=== PATIENT | female | born 1965 ===

== ENCOUNTER 2016-03-27 05:21 | Inpatient (IN) | payer OTHER ==
[~2016-03-27] VITALS: Ht 160 cm; Wt 72.6 kg
[2016-03-27] VITALS (14 sets, daily range): BP systolic 104–135; BP diastolic 41–92
[~2016-03-27 05:21] MED LIST: NORCO 10-325 T1 EACH ORAL; SOMA350 MG PO; TRAMADOL HCL50 MG ORAL
[2016-03-27] MEDS ORDERED: ceFAZolin sod 2 GM in D5W 110 ML IVPB ONE (06:00)
[2016-03-27] MEDS ORDERED: Thrombin 5000 units TOPIC ONE (06:27)
[2016-03-27] MEDS ORDERED: Surgicel 4in x 8in TOPIC ONE (06:28)
[2016-03-27] MEDS ORDERED: Vancomycin 1gm inj IVPB ONE (06:28)
[2016-03-27] MEDS ORDERED: Bupivacaine w/Epi 0.5% 30ml Vial INJ ONE (06:29)
[2016-03-27] MEDS ORDERED: Bacitracin 50000 Units Vial ONE (06:29)
[2016-03-27] MEDS ORDERED: fentaNYL 250mcg/5ml ONE (07:00)
[2016-03-27] MEDS ORDERED: Zemuron 50mg/5ml Inj IV ONE (07:00)
[2016-03-27] MEDS ORDERED: Sterile Water Irrig 1000ml IRRIG ONE (07:00)
[2016-03-27] MEDS ORDERED: Dexamethasone 4mg/ml vial ONE (07:00)
[2016-03-27] MEDS ORDERED: Lidocaine 1% MPF 10mg/ml 5ml ONE (07:00)
[2016-03-27] MEDS ORDERED: fentaNYL 100 mcg/2 mL IV ONE (07:00)
[2016-03-27] MEDS ORDERED: LR 1000ml ONE (07:00)
[2016-03-27] MEDS ORDERED: Neostigmine 1mg/ml 10ml Inj ONE (07:00)
[2016-03-27] MEDS ORDERED: Glycopyrrolate 0.2mg/ml 1ml Vial ONE (07:00)
[2016-03-27] MEDS ORDERED: NS Irrig 1000ml ONE (07:00)
[2016-03-27] MEDS ORDERED: Propofol 10mg/ml 20ml IV ONE (07:00)
--- NOTE | 2016-03-27 07:08 | Pre-Procedure Note/Attestation ---
Pre-Procedure Note/Attestation Complete Prior to Procedure Planned Procedure: bilateral Procedure Narrative: Bilateral hemilaminotomy foraminotomy microdiscectomy at L5S1 and Right sided hemilaminotomy foraminotomy microdiscectomy at L34 and L45 Indications for Procedure Pre-Operative Diagnosis: Bilateral leg pain and radiculopathy Attestation I attest that I discussed the nature of the procedure; its benefits; risks and complications; and alternatives (and the risks and benefits of such alternatives ), prior to the procedure, with the patient (or the patient's legal pharmaceutical specialty representative). I attest that, if there was a reasonable possibility of needing a blood transfusion, the patient (or the patient's legal pharmaceutical specialty representative) was given the [place] Department of [employer] Services standardized written summary, pursuant to the Dejan Hailey Blood Safety Act ([place] Health and Safety Code # 1645, as amended). I attest that I re-evaluated the patient just prior to the surgery and that there has been no change in the patient's H&P, except as documented below: LAUREN JEFFREY Mar 27, 2016 07:08
--- NOTE | 2016-03-27 07:09 | Brief Operative Note ---
Immediate Post Operative Note Operative Note Chief Complaint: Leg pain radiculopathy back pain Pre-op Diagnosis: Bilateral leg pain and radiculopathy Procedure: Bilateral hemilaminotomy foraminotomy microdiscectomy at L5S1 and Right sided hemilaminotomy foraminotomy microdiscectomy at L34 and L45 Post-op Diagnosis: same as pre-op Findings: consistent w/pre-op dx studies Surgeon: Zainab Safety Council Director: Anup Anesthesia: general Specimen: none Complications: none Condition: stable Estimated Blood Loss: minimal Drains: none Implant(s) used?: Yes - LAUREN Castelan Mar 27, 2016 07:09
--- NOTE | 2016-03-27 07:35 | Anethesia Preoperative Eval ---
Anesthesia Pre-op PMH/ROS General Date of Evaluation: Mar 27, 2016 Time of Evaluation: 06:51 Anesthesiologist: Jem ASA Score: ASA 3 Mallampati Score Class I : Soft palate, uvula, fauces, pillars visible Class II: Soft palate, uvula, fauces visible Class III: Soft palate, base of uvula visible Class IV: Only hard plate visible Mallampati Classification: Class II Surgeon: Zainab Diagnosis: Back Pain Surgical Procedure: Bilateral Hemilaminotomy, Foraminotomy, Microdiscectomy L5- S1 Anesthesia History: none Social History: current smoker Family History: no anesthesia problems Allergies: Coded Allergies: FLUCONAZOLE (Verified Allergy, Severe, REYES'S SOHEILA SYNDROME, 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 Exam Physician Exam Last Vital Signs Date Time Temp Pulse Resp B/P Pulse Ox O2 Delivery O2 Flow Rate FiO2 03/27/16 06:03 97.0 72 18 120/80 98 Nasal Cannula Constitutional: NAD Neurologic: CN 2-12 intact Cardiovascular: RRR Respiratory: CTA Gastrointestinal: S/NT/ND Airway Exam Mallampati Score: Class II MO: full ROM: limited Teeth: intact Anesthesia Pre-op A/P Risk Assessment & Plan Assessment: ASA 3 Plan: GA, Glidescope, BIS Status Change Before Surgery: No Pre-Antibiotics Dru Grams Ancef IV Given Within 1 Hr of Incision: Yes Time Given: 07:11 Kaden Parish MD Mar 27, 2016 07:35
[2016-03-27] MEDS ORDERED: LR 1000ml 1,000 ML IVLG SCH (07:48)
--- NOTE | 2016-03-27 07:48 | Immediate Post-Op Evaluation ---
Immediate Post-Op Evalulation Immediate Post-Op Evalulation Procedure: Bilateral Hemilaminotomy, Foraminotomy, Microdiscectomy L5-S1 Date of Evaluation: Mar 27, 2016 Time of Evaluation: 10:17 IV Fluids: 900 LR Blood Products: 0 Estimated Blood Loss: 75 Urinary Output: 450 Blood Pressure Systolic: 138 Blood Pressure Diastolic: 98 Pulse Rate: 100 Respiratory Rate: 16 O2 Sat by Pulse Oximetry: 100 Temperature (Fahrenheit): 97 Pain Score (1-10): 3 Nausea: No Vomiting: No Complications 0 Patient Status: awake, reacts, patent, extubated, none Hydration Status: adequate Dru Grams Ancef IV Given Within 1 Hr of Incision: Yes Time Given: 07:11 Kaden Parish MD Mar 27, 2016 07:48
[2016-03-27] MEDS ORDERED: Midazolam 2mg/2ml Inj IVP PRN (08:00)
[2016-03-27] MEDS ORDERED: LORazepam Inj 2mg/ml 1ml IV PRN (08:00)
[2016-03-27] MEDS ORDERED: Oxycodone/Acetaminophen 5-325 ORAL PRN (08:00)
[2016-03-27] MEDS ORDERED: fentaNYL 100 mcg/2 mL IV PRN (08:00)
[2016-03-27] MEDS ORDERED: Atropine Inj 1mg/10ml Syr IV PRN (08:00)
[2016-03-27] MEDS ORDERED: DiphenhydrAMINE 50mg/ml Inj IVP PRN (08:00)
[2016-03-27] MEDS ORDERED: Labetalol 5mg/ml 20ml vial IV PRN (08:00)
[2016-03-27] MEDS ORDERED: Metoclopramide 10mg/2ml Inj IVP PRN ×2 (08:00→23:00)
[2016-03-27] MEDS ORDERED: Ketorolac 60mg Inj IV PRN (08:00)
[2016-03-27] MEDS ORDERED: Meperidine 25mg/ml Inj IV PRN (08:00)
[2016-03-27] MEDS ORDERED: Norco 7.5mg/325mg tab ORAL PRN ×3 (08:00→13:00)
[2016-03-27] MEDS ORDERED: Norco 5mg/325mg tab ORAL PRN ×2 (08:00→13:00)
[2016-03-27] MEDS ORDERED: Ketorolac 30mg Inj IV PRN ×2 (08:00→23:00)
[2016-03-27] MEDS ORDERED: Acetaminophen (Non formulary) 100 ML IV ONE (08:15)
[2016-03-27] MEDS ORDERED: Ropivacaine 5mg/ml Vial 20ml INJ ONE (10:00)
[2016-03-27] MEDS: Hydromorphone 0.5mg/0.5ml inj IVP PRN ×2 (10:39→11:13)
[2016-03-27] MEDS ORDERED: Milk of Magnesia 30ml Ud ORAL PRN (13:00)
[2016-03-27] MEDS ORDERED: HYDROmorphone 1mg/ml Carpuject SUBQ PRN (13:00)
[2016-03-27] MEDS ORDERED: HYDROmorphone 1mg/ml Carpuject IVP PRN (13:00)
[2016-03-27] MEDS ORDERED: Naloxone 0.4mg/ml Inj IVP PRN (13:00)
[2016-03-27] MEDS: Dexamethasone 4mg/ml vial IVP SCH ×2 (14:03→17:53)
[2016-03-27] MEDS: NS w/KCl 20mEq 1,000 ML IV SCH (14:03)
[2016-03-27] MEDS: ceFAZolin sod 1 GM in D5W 55 ML IV SCH ×2 (14:04→22:02)
--- NOTE | 2016-03-27 14:12 | History and Physical ---
History of Present Illness General Date patient seen: Mar 27, 2016 Time patient seen: 14:09 Present Illness HPI 50 yo F with b/l LE pain and back pain due to lumbar spinal stenosis with radiculopathy. 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) MORPHINE (Verified Allergy, Unknown, 11/23/15) Medication History Scheduled Carisoprodol* (Soma*), 350 MG PO BID, (Reported) Scheduled PRN Hydrocodone Bit/Acetaminophen 10-325* ([place] 10-325*), 1 TAB ORAL Q6H PRN for For Pain, (Reported) Tramadol Hcl* (Ultram*), 50 MG ORAL PRN PRN for For Pain, (Reported) Patient History Healthcare decision maker MANISH Resuscitation status Full Code Advanced Directive on File Past Medical/Surgical History Past Medical/Surgical History: (1) HNP (herniated nucleus pulposus), lumbar Family History Family History: Patient reports no known family medical history. Social History Social History: (1) No significant social history Review of Systems All Other Systems: negative except mentioned in HPI Physical Exam General Appearance: no apparent distress, alert HEENT: normocephalic, atraumatic, anicteric, mucous membranes moist, PERRL, EOMI, pharynx normal, no JVD Neck: non-tender, supple Respiratory/Chest: lungs clear, normal breath sounds, no respiratory distress, no accessory muscle use Cardiovascular/Chest: normal peripheral pulses, normal rate, regular rhythm Abdomen: normal bowel sounds, non tender, soft, no mass Extremities: non-tender, normal inspection Skin Exam: warm/dry, other - incision c/d/i Neurologic: snowboarding instructor II-XII grossly normal, no motor/sensory deficits, alert Musculoskeletal: normal muscle bulk Last 24 Hour Vital Signs Date Time Temp Pulse Resp B/P Pulse Ox O2 Delivery O2 Flow Rate FiO2 03/27/16 13:00 97.0 72 20 134/68 100 Nasal Cannula 3.0 03/27/16 12:00 97.0 67 20 121/75 100 Nasal Cannula 3.0 03/27/16 11:52 98.8 03/27/16 11:52 98.8 03/27/16 11:43 98.8 72 20 116/79 100 Nasal Cannula 3.0 03/27/16 11:30 75 20 125/41 100 Nasal Cannula 3.0 03/27/16 11:13 79 20 133/80 100 Nasal Cannula 3.0 03/27/16 11:00 79 20 135/84 100 Simple Mask 8.0 03/27/16 10:45 74 20 130/84 100 Simple Mask 8.0 03/27/16 10:39 84 20 128/81 100 Simple Mask 8.0 03/27/16 10:16 84 20 128/81 100 Simple Mask 8.0 03/27/16 10:11 83 20 125/62 100 Simple Mask 8.0 03/27/16 10:08 100 16 100 03/27/16 10:06 97.0 94 20 135/92 100 Simple Mask 8.0 03/27/16 06:03 97.0 72 18 120/80 98 Nasal Cannula Intake and Output 03/26/16 03/27/16 19:00 07:00 # Voids 1 Height (Feet): 5 Height (Inches): 3.00 Weight (Pounds): 160 Medications Current Medications Medications (Trade) Dose Ordered Sig/El Route PRN Reason Start Time Stop Time Status Last Admin Dose Admin Acetaminophen (Tylenol) 650 mg Q4H PRN ORAL headache or temp>101 03/27/16 13:00 04/26/16 12:59 Acetaminophen/ Hydrocodone Bitart ([place] 5/325) 1 tab Q3H PRN ORAL pain score 1-3 03/27/16 13:00 04/03/16 12:59 Acetaminophen/ Hydrocodone Bitart ([place] 7.5/325) 1 ea Q3H PRN ORAL pain score 4-6 03/27/16 13:00 04/03/16 12:59 Acetaminophen/ Hydrocodone Bitart ([place] 7.5/325) 2 ea Q3H PRN ORAL pain scale 7-10 03/27/16 13:00 04/03/16 12:59 Carisoprodol (Soma) 350 mg TIDPRN PRN ORAL SPASM 03/27/16 13:00 04/26/16 12:59 Cefazolin Sodium/ Dextrose (Ancef/D5W) 55 ml @ 110 mls/hr Q8H IV 03/27/16 15:00 03/28/16 07:29 03/27/16 14:04 Dexamethasone Sodium Phosphate (Decadron 4mg/ml vial) 4 mg Q6HR IVP 03/27/16 13:00 03/28/16 06:01 03/27/16 14:03 Docusate Sodium (Colace) 100 mg TWICE A DAY ORAL 03/27/16 18:00 04/26/16 17:59 Hydromorphone HCl (Dilaudid) 1 mg Q4H PRN SUBQ Mild Pain (Pain Scale 1-3) 03/27/16 13:00 04/03/16 12:59 Hydromorphone HCl (Dilaudid) 2 mg Q3H PRN SUBQ Severe Pain (Pain Scale 7-10) 03/27/16 13:00 04/03/16 12:59 Hydromorphone HCl (Dilaudid) 2 mg Q4H PRN SUBQ Moderate Pain (Pain Scale 4-6) 03/27/16 13:00 04/03/16 12:59 Hydromorphone HCl 1 mg 1 mg Q2H PRN IVP Breakthrough Pain 03/27/16 13:00 04/03/16 12:59 Magnesium Hydroxide (Mom) 30 ml QIDPRN PRN ORAL Constipation 03/27/16 13:00 04/26/16 12:59 Naloxone HCl (Narcan) 0.1 mg PRN PRN IVP RR<12/min, pt unarousable 03/27/16 13:00 04/26/16 12:59 Ondansetron HCl (Zofran) 4 mg Q6H PRN IVP Nausea & Vomiting 03/27/16 13:00 04/26/16 12:59 Prochlorperazine (Compazine) 10 mg Q6H PRN IVP Nausea & Vomiting 03/27/16 13:00 04/26/16 12:59 Sodium Chloride (NS w/KCl 20mEq) 1,000 ml @ 100 mls/hr Q10H IV 03/27/16 14:30 04/26/16 14:29 03/27/16 14:03 Temazepam (Restoril) 15 mg HSPRN PRN ORAL Insomnia 03/27/16 21:00 04/03/16 20:59 Assessment/Plan Problem List: (1) HNP (herniated nucleus pulposus), lumbar ICD Codes: M51.26 - Other intervertebral disc displacement, lumbar region SNOMED: [id number] Status: progressing Assessment/Plan Pt s/p Bilateral hemilaminotomy foraminotomy microdiscectomy at L5S1 and Right sided hemilaminotomy foraminotomy microdiscectomy at L34 and L45, POD 0 pain control IC pt/ot bowel regimen adat prn anti emetic Gilberto Peters M.D. Mar 27, 2016 14:12
[2016-03-27] MEDS: Docusate 100mg cap ORAL SCH (17:53)
[2016-03-27] MEDS ORDERED: Ketorolac 30mg Inj IV SCH (23:00)
[2016-03-28] MEDS: NS w/KCl 20mEq 1,000 ML IV SCH ×2 (00:05→10:30)
[2016-03-28] MEDS: Dexamethasone 4mg/ml vial IVP SCH ×2 (00:05→06:15)
[2016-03-28 00:32] VITALS: BP 96/65
[2016-03-28 04:00] VITALS: BP 97/59
[2016-03-28] MEDS: ceFAZolin sod 1 GM in D5W 55 ML IV SCH (06:16)
[2016-03-28 08:00] VITALS: BP 97/64
[2016-03-28] MEDS: Docusate 100mg cap ORAL SCH (09:16)
[2016-03-28 12:00] VITALS: BP 97/63
--- NOTE | 2016-03-28 13:45 | Discharge Summary ---
Discharge Summary Hospital Course Date of Admission Mar 27, 2016 at 05:21 Date of Discharge 03/28/16 Admitting Diagnosis HNP HPI Jessica Tinsley is a 50 year old female who was admitted on Mar 27, 2016 at 05:21 for Lumbar Herniated Disc,Radiculopathy Consultations Zainab, surg Hospital Course Pt admitted to med surg s/p Bilateral hemilaminotomy foraminotomy microdiscectomy at L5S1 and Right sided hemilaminotomy foraminotomy microdiscectomy at L34 and L45, and dc POD 1. pain control IC pt/ot bowel regimen adat prn anti emetic Discharge Medications Continued Medications: Carisoprodol* (Soma*) 350 Mg Tablet 350 MG PO BID for muscle spasm, TAB Hydrocodone Bit/Acetaminophen 10-325* ([place] 10-325*) 1 Each Tablet 1 TAB ORAL Q6H PRN for For Pain, #1090 TAB 0 Refills PRN PAIN Tramadol Hcl* (Ultram*) 50 Mg Tablet 50 MG ORAL PRN PRN for For Pain, #30 TAB 0 Refills Discharge Condition Upon Discharge: stable Discharge Disposition Patient was discharged to Home (01) Discharge Diagnoses: (1) HNP (herniated nucleus pulposus), cervical (2) HNP (herniated nucleus pulposus), lumbar Gilberto Peters M.D. Mar 28, 2016 13:45
[2016-03-28 14:08] VITALS: BP 102/56
--- NOTE | 2016-03-28 14:08 | 48 Hour Post Anesthesia Eval ---
Post Anesthesia Evaluation Procedure: Bilateral Hemilaminotomy, Foraminotomy, Microdiscectomy L5-S1 Date of Evaluation: Mar 28, 2016 Time of Evaluation: 14:07 Blood Pressure Systolic: 102 0: 56 Pulse Rate: 72 Respiratory Rate: 20 Temperature (Fahrenheit): 97.5 O2 Sat by Pulse Oximetry: 98 Airway: patent Nausea: No Vomiting: No Pain Intensity: 3 Hydration Status: adequate Cardiopulmonary Status: stable Mental Status/LOC: patient returned to baseline Follow-up Care/Observations: n/a Post-Anesthesia Complications: none Follow-up care needed: ready to discharge HUGO COLLADO M.D. Mar 28, 2016 14:08
--- NOTE | 2016-03-29 03:08 | Operative Note - Dictated ---
DATE OF OPERATION: 03/27/2016 SURGEON: Prashant Lamb MD, Orthopaedic Spine Surgeon PROJECT STRUCTURAL ENGINEER SURGEON: Yogesh Hebert M.D. ANESTHESIA: General endotracheal anesthesia. PREOPERATIVE DIAGNOSES: 1. Intractable back pain. 2. Intractable leg pain. 3. Worsening radiculopathy. 4. Weakness. 5. Herniated nucleus pulposus, right-sided L3-4, right-sided L4-5, and bilateral L5-S1. 6. Neural foraminal stenosis, right-sided L3-4, right-sided L4-5, and bilateral L5-S1. POSTOPERATIVE DIAGNOSES: 1. Intractable back pain. 2. Intractable leg pain. 3. Worsening radiculopathy. 4. Weakness. 5. Herniated nucleus pulposus, right-sided L3-4, right-sided L4-5, and bilateral L5-S1. 6. Neural foraminal stenosis, right-sided L3-4, right-sided L4-5, and bilateral L5-S1. PROCEDURES PERFORMED: 1. Right-sided L3-4 and L4-5, and bilateral L5-S1 microdiscectomy. 2. Right-sided L3-4 and L4-5, and bilateral L5-S1 hemilaminotomy, foraminotomy and medial facetectomy. 3. Right-sided L3-4 and L4-5, and bilateral L5-S1 neural foraminotomy through a transpedicular intraforaminal approach. 4. Use of intraoperative microscope. 5. Supervision and interpretation of intraoperative fluoroscopy. 6. Supervision and interpretation of somatosensory-evoked potential and free running EMG monitoring. EBL: Less than 100 mL. COMPLICATIONS: None. INDICATIONS FOR THE PROCEDURE: Jessica presents for intractable back pain and radiculopathy. The patient tried and failed a prolonged course of conservative management, including but not limited to chiropractic therapy, physical therapy, nonsteroidal anti-inflammatory drugs, medication, ice packs as well as epidural injection. Despite these therapies, the patient still developed recalcitrant pain and elected for definitive management in the form of right-sided L3-4 and L4-5, and bilateral L5-S1 microdiscectomy; right-sided L3-4 and L4-5, and bilateral L5-S1 hemilaminotomy, foraminotomy and medial facetectomy; and right-sided L3-4 and L4-5, and bilateral L5-S1 neural foraminotomy through a transpedicular intraforaminal approach. We had a long discussion with him regarding definitive surgical treatment options. The patient's MRI demonstrated herniated nucleus pulposus, right-sided L3-4, right-sided L4-5, bilateral L5-S1 and neural foraminal stenosis, right-sided L3-4, right-sided L4-5, bilateral L5-S1, and as a result, I felt he would benefit from the discectomy as well as neural foraminotomy at this level. We had a long discussion with the patient regarding the risks, alternatives, and benefits of surgery. Our description of the risks included a discussion in person as well as a signed consent which detailed all pertinent risks and the procedure itself. Briefly, our discussion included but was not limited to infection, bleeding, pseudarthrosis, spinal cord injury, neurovascular injury, dural tear, CSF leak, neuropathy, paralysis, permanent weakness/drop foot, paresthesias blindness, palsy and weakness. The patient understood there may be a need for revision surgery or additional procedures. Approach related complications including dysphonia, dysphagia, blindness, permanent vocal cord and neural injury, hematoma, swallowing and breathing difficulty. Medical complications including liver, kidney, shock, and cardiopulmonary failure. Anesthesia complications including , swelling. Damage to the musculature, larynx (voice injury or loss),esophagus (throat), trachea, blood vessels and muscles (muscular sprain) and lungs (pneumothorax) during this surgical procedure. Injury to deeper structures may be temporary or permanent. The patient understood these and elected to proceed. A written and verbal consent was given. We discussed the pros and cons of all the alternatives. We discussed the uncertainties associated with the decision. Afterwards I assessed the patients understanding and explored their preferences. All questions were answered and no guarantees were given. Medical clearance was obtained prior to surgery. OPERATIVE FINDINGS: A broad-based disc herniation at L3-4, L4-5, and L5-S1, which encroached on the thecal sac and neural foraminal elements therein. This disc was acute in nature and not calcified. It was mobile and free floating and resected easily. There was also neural foraminal stenosis at L3-4, L4-5, and L5-S1. DESCRIPTION OF PROCEDURE: Under the benefit of general endotracheal anesthesia and with the assistance of the entire operative team, the patient was moved from the rmuldoon onto the operative table in the prone position on a Abdirahman frame. The head was secured and positioned appropriately. Bilateral arms were secured with Gel pads and foam and all bony prominences were padded. The bilateral lower extremity SCD and ALEX hose were placed for DVT prophylaxis. A surgical timeout was called which corroborated our planned procedure. Preoperative Antibiotics were administered within 30 minutes of the incision for prophylaxis. Decadron was given for preoperative steroids. Using lateral radiography, the operative levels were delineated. An incision was marked based on our interpretation of lateral radiography and afterwards the body was prepped and draped in the usual sterile manner. The family was notified that we were ready to commence surgery and were called in the waiting room hourly for updates. An incision was based on our lateral fluoroscopic image to center the incision at the L5-S1 interspace. The wound was prepped and draped in the usual sterile fashion. Using a scalpel a midline incision was taken down through the skin and subcutaneous tissues until the overlying hemilamina of L3-4, L4-5, and L5-S1 were visualized. Next, using meticulous hemostasis, hemilaminotomies were dissected and retractors were placed. Using a Vino Volo dental we confirmed placement at the L3-4, L4-5, and L5-S1 interspace. We next turned our attention to our decompression. A standard hemilaminotomy foraminotomy medial facetectomy was performed at each level in standard fashion using a Midas-Conner type AM8 drill bit, straight and angled curettage, and Kerr[place] 4 rongeurs until the lateral thecal sac margin and traversing nerve root was visualized. All remainders of the ligamentum flavum and lateral bony margins were resected in total with angled curettage and Kerrison 4 rongeurs until the lateral thecal sac margin and traversing nerve root was visualized and decompressed. We next turned our attention toward our L3-4, L4-5, and L5-S1 microdiscectomy on the right side at L3-4 and L4-5 and bilaterally at L5-S1. A [place] 4 was used to gently mobilize the thecal sac medially and this was held retracted with a bayonetted nerve root retractor. It was at this point that we noted a large broad-based disc protrusion with encroachment dorsally on the thecal sac neural foraminal contents. A bayonet and nerve root retractor was then placed carefully to retract the thecal sac and a discectomy was performed using a combination of a long handled 15 blade scalpel, downgoing and straight pituitaries and downgoing curettage. Afterward the disc space was irrigated twice with 20 mL of antibiotic-impregnated saline. All loose and free-floating disc fragments were carefully resected with a narrow pituitary. Having been satisfied with our decompression after our discectomy of all neural elements we next turned our attention to our neural foraminoplasty/foraminotomy. This was performed through a transpedicular intraforaminal approach using an access probe followed by a neuro check device, which confirmed ventral placement of our nerve root. Once we confirmed we were safe we next turned our attention towards placement of our size 10 file under direct microscopic visualization and under lateral fluoroscopy. Using pre and post reciprocation imaging we were able to visualize our direct decompression given the reciprocation allowed for re-creation of the neural foraminal arch . Afterwards hemostasis was obtained with 60 mL of antibiotic-impregnated saline followed by FloSeal and Gelfoam. After sponge and needle count were found to be correct, next we turned our attention to closure. Closure consisted of 1-0 Vicryl in standard interrupted fashion. Zosyn was placed deep to the fascia and superficial to the fascia for Antibiotic prophylaxis. Skin closure was performed with 2-0 Vicryl in interrupted fashion followed by a running Monocryl for the skin. Final dressings consisted of Dermabond for the superficial skin, Telfa and Tegaderm. The patient tolerated the procedure well. The patient was extubated after the conclusion of surgery without incident. We discussed the findings of the surgery with the family upon completion of the case. At this point the patient will be transferred to the spine floor for further observation. Prashant Lamb M.D. DR: JEFFREY JOB#: [id number] CC: RENE
--- NOTE | 2016-03-29 03:17 | Discharge Summary ---
DATE OF ADMISSION: 03/27/2016 DATE OF DISCHARGE: 03/28/2016 PROCEDURE PERFORMED DURING ADMISSION: Microdiscectomy, L3-4, L4-5, and L5-S1 with bilateral hemilaminotomy, foraminotomy at L5-S1. REASON FOR ADMISSION: Herniated nucleus pulposus, L3-4, L4-5, and L5-S1. HOSPITAL COURSE/TREATMENT RENDERED: DISCHARGE PHYSICAL EXAM: 1. Patient was ambulating with and without the assistance of physical therapy. 2. Prior to discharge home incision was clean and dry with minimal swelling. 3. Follows commands. 4. Alert and oriented. 5. Hicks discontinued, voiding. 6. Incentive spirometer at bedside. 7. IVF hep locked. MOTOR: Demonstrates expected postoperative bulk and tone. Moves biceps, triceps, and deltoid musculature on command. Moves hip flexors, quadriceps, tibialis anterior, EHL, gastrocsoleus musculature on command as well. TREATMENT RENDERED: 1. Daily nursing care. 2. Physical Therapy. 3. Occupational Therapy. 4. Intravenous medications. 5. Oral medications. 6. Daily postoperative examinations by Spine surgery team. CONDITION OF PATIENT ON DISCHARGE: The condition on discharge is stable for discharge to home. DISCHARGE INSTRUCTIONS: Our specific instructions relating to physical activity, medications diet and follow-up care are detailed in our standard operative folder and were given to this patient prior to surgery. We will however summarize these briefly as stated below. Regarding physical activity we would like the patient to limit their flexion, extension and rotation. We also require a limitation on their bending lifting and twisting. All medication has been called in prior to surgery to their pharmacy of choice. They can resume their regular diet once tolerated. We would like them to shower and limit soaking the wound in a tub/Jacuzzi/the ocean for a period of one month or until the incision is completely healed. We will have them follow up in our office in three weeks time for their regularly scheduled appointment. They understand to call our office tomorrow to schedule the time for their three week followup appointment. The patient will notify us should they experience any increase in the severity of pain, redness/swelling/ or drainage from their incision. Prashant Lamb M.D. DR: JEFFREY JOB#: [id number] CC:
--- NOTE | 2016-04-03 12:58 | Diagnostic Imaging Report ---
Indication: Back pain and right lower extremity pain Technique: Digital intraoperative imaging Comparison: None Findings: Interoperative localization imaging initially demonstrates a surgical tool projected seen posterior to the L4-5 disc. Subsequent images demonstrate deployment of the Baxano device at the L5-S1 level. Impression: Intraoperative imaging, as described
== END 2016-03-28 13:30 | disposition home or self-care (01) | DRG 520 ==
LOC: SDSOVERFLO 05:21 → 3E 12:33
DX: M51.16 Intervertebral disc disorders with radiculopathy, lumbar region (principal); M48.06 Spinal stenosis, lumbar region; Z88.8 Allergy status to other drugs, medicaments and biological substances; V89.2XXS Person injured in unspecified motor-vehicle accident, traffic, sequela
CPT/HCPCS: 36415; 72020; 76000; 86850; 86900; 86901; 87081; 94003; 94150; J2180; J2405; J2710